=== PATIENT | male | born 1995 | race African-American/Black ===

== ENCOUNTER 2017-09-02 00:24 | Emergency (ER) | payer SELFPAY ==
[~2017-09-02] VITALS: Ht 167.6 cm; Wt 63.6 kg
[2017-09-02] MEDS ORDERED: GuaiFENesin/D-METHORPHAN [SUGAR-FREE] 200-20MG/10 ML SYRUP UDCUP PO ONE (03:00)
[2017-09-02] MEDS ORDERED: ALBUTEROL SULFATE HFA 90 MCG/PUFF 8 GM INHALER IH ONE (03:00)
[2017-09-02] MEDS ORDERED: ACETAMINOPHEN 500 MG TABLET PO ONE (03:00)
[2017-09-02 03:10] VITALS: BP 119/80
== END 2017-09-02 03:18 | disposition home or self-care (01) ==
LOC: EMS 00:27
DX: J06.9 Acute upper respiratory infection, unspecified (principal); J40 Bronchitis, not specified as acute or chronic
CPT/HCPCS: 94640; 99283; J3535